=== PATIENT | female | born 1990 | race Caucasian/White ===

== ENCOUNTER 2016-10-14 17:59 | Emergency (ER) | payer OTHER ==
[2016-10-14 18:14] VITALS: BP 109/66
[2016-10-14 18:28] LABS: Hematocrit 40.2 % (37.0-47.0); Hemoglobin 13.7 gm/dL (12.5-16.0); Mean Cell Volume 89.1 fl (78-100); Mean Corpuscular Hemoglobin 30.4 pg (27-31); Mean Corpuscular Hgb Conc 34.1 g/dl (32-36); Mean Platelet Volume 9.7 fl (6.0-9.5); Neutrophil # 3.9 K/mm3 (1.3-6.0); Neutrophil % 51.4 % (42-75.0); Platelet Count 301 K/mm3 (150-450); Red Blood Count 4.51 M/mm3 (4.2-5.4); Red Cell Distribution Width 12.1 % (11.5-14.0); White Blood Count 7.6 K/mm3 (4.0-10.5)
[2016-10-14 18:38] LABS: Prothrombin Time (Patient) 10.2 Seconds (9.4-11.4)
[2016-10-14 18:44] LABS: ALT 19 U/L (19-67); AST 14 U/L (0-48); Alkaline Phosphatase * 49 U/L (50-170); Anion Gap 13.6 mmol/L (6.8-13.8); BUN/Creatinine Ratio 13.8 (9.0-21.6); Bilirubin, Total 0.6 mg/dL (0.0-1.1); Blood Urea Nitrogen 12 mg/dL (3-23); Ca. Corrected For Albumin 8.6 mg/dL (8.4-10.2); Calcium * 8.9 mg/dL (7.9-10.9); Carbon Dioxide 26.3 mmol/L (24-32.6); Chloride 106 mmol/L (97-106); Glucose * 107 mg/dL (70-110); Potassium 3.9 mmol/L (3.4-4.6); Sodium 142 mmol/L (132-142); Total Protein 7.6 gm/dL (6.2-8.2); Troponin I Less than 0.017 ng/ml (0.00-0.10)
[2016-10-14 18:54] LABS: INR 0.98 INR (0.90-1.10); Partial Thrombolplastin Time 24.9 Seconds (24-32)
--- OUTSIDE RECORDS SUMMARY | 2016-10-14 19:33 | XMS REPORT | Continuity of Care Document ---
:1990 Author Organization [facility] ([facility]) Address [address] [place] [address] Phone [phone] Care Team Providers Name Role Phone Unavailable Primary Care Provider Unavailable Source Comments This disclosure is being made pursuant to the Care Everywhere program, applicable federal and state laws, and may not contain all informaitonavailable regarding this patient.[facility] ([facility]) Active Allergies and Adverse Reactions Not on File Current Medications Not on file Active Problems Not on file Social History Tobacco Use Types Packs/Day Years Used Date Never Assessed Plan of Care Health Maintenance Due Date Last Done Comments Hepatitis B Vaccine (1 of 3 - Primary Series) 1988 Tdap Vaccine 1999 Cervical Cancer Screening 2006 Lipid Disorder Screening 2006 MMR Vaccine 2006 Td Vaccine 2006 Varicella Vaccine (1 of 2 - Adult - No Evidence of 2006 Immunity) Influenza Vaccine: Seasonal (#1) 03/26/2016 Results from Last 3 Months Not on file
--- OUTSIDE RECORDS SUMMARY | 2016-10-14 19:33 | XMS REPORT | Continuity of Care Document ---
:1990 Author Organization [facility] [place] [address] Care Team Providers Name Role Phone Unavailable Primary Care Provider Unavailable Source Comments This disclosure is being made pursuant to the Mithridion program and maynot contain all information available regarding this patient.[facility] Active Allergies and Adverse Reactions Not on File Current Medications Be aware that medications may not be up to date as of this document. Alwaysverify current medications with the patient. Not on file Active Problems Not on file Social History Tobacco Use Types Packs/Day Years Used Date Never Assessed Plan of Care Health Maintenance Due Date Last Done Comments Retired-Pertussis Vaccine Adult 2007 Retired-Tetanus Vaccine Adult 2007 Pap Smear 2009 Retired-INFLUENZA VACCINE 04/26/2015 Results from Last 3 Months Not on file
--- OUTSIDE RECORDS SUMMARY | 2016-10-14 19:34 | XMS REPORT | Summary of Care ---
:1990 Author Organization [facility] Address [address] [place] [address] Care Team Providers Name Role Phone Karen Ross Primary Care Physician Encounter Date(s): 01/20/16 - 01/20/16 [facility], [address] [place], [place] [address] Discharge Diagnosis: Obesity Discharge Disposition: 01 Discharged to Home or Self Care Attending Physician: ANITA Adan Referring Physician: ANITA Adan Vital Signs Most recent to oldest [Reference Range]: 1 Temperature Tympanic [36.6-38.1 DegC] 36.4 DegC *LOW* (01/20/16 8:44 AM) Temperature C to F 97.5 (01/20/16 8:44 AM) Peripheral Pulse Rate [60-100 bpm] 81 bpm (01/20/16 8:44 AM) SpO2 98 % (01/20/16 8:44 AM) Blood Pressure [90-130/60-90 mmHg] 102/64mmHg (01/20/16 8:44 AM) Mean Arterial Pressure, Cuff 77 mmHg (01/20/16 8:44 AM) Most recent to oldest [Reference Range]: 1 Height/Length Measured 157.48 cm (01/20/16 8:44 AM) Weight Dosing 90.30 kg1 (01/20/16 8:47 AM) Weight Measured 90.3 kg (01/20/16 8:44 AM) BSA Measured 1.91 m2 (01/20/16 8:44 AM) Body Mass Index Measured 36.41 kg/m2 (01/20/16 8:44 AM) 1Result Comment: This result was because the dosing weight was either not entered or it is>30 days old. This result is based off: Weight Measured January 20, 2016 08:44:00 CDT by Sadaf Castellanos CMA Problem List Condition Effective Dates Status Health Status Informant Miscarriage at 8 to 28 Active weeks(Confirmed) Sleep walking disorder(Confirmed) Active Allergies, Adverse Reactions, Alerts No Known Medication Allergies Medications clonazePAM 0.5 mg oral tablet 1 tab(s), Oral, HS, 0 Refill(s), Start Date: 07/16/14 8:08:00 [employer] Start Date: 07/16/14 Stop Date: 05/03/15 Status: DiscontinuedDepo-Provera mg, IM, qMonth, 0 Refill(s), Start Date: 06/21/14 14:32:00 CDT Start Date: 06/21/14 Stop Date: 05/03/15 Status: DiscontinuedDepo-Provera Contraceptive 150 mg/mL intramuscular suspension 1 mL, IM, q3mo, # 1 mL, 3 Refill(s), Start Date: 12/22/15 9:07:00 CDT Start Date: 12/22/15 Status: OrderedDepo-Provera Contraceptive 150 mg/mL intramuscular suspension 1 mL, IM, q3mo, # 1 mL, 3 Refill(s), Start Date: 09/05/15 9:29:00 [employer], [facility] [place] [place] Start Date: 09/05/15 Stop Date: 11/24/15 Status: DiscontinuedIron-150 tab(s), Oral, Daily, 0 Refill(s), Start Date: 11/24/15 11:21:00 CDT Start Date: 11/24/15 Status: OrderedMedrol Dosepak 4 mg oral tablet 1 packet(s), Oral, Per Package Label, as directed on package labeling, # 21 tab( s), 0 Refill(s), [facility] [place] [place] Special Instructions: as directed on package labeling Start Date: 02/25/14 Stop Date: 04/05/14 Status: Discontinuedmultivitamin 1 tab(s), Oral, Daily, 0 Refill(s), Start Date: 06/21/14 14:32:00 CDT Start Date: 06/21/14 Stop Date: 11/24/15 Status: Discontinuedphentermine 37.5 mg oral capsule 1 cap(s), Oral, Daily, # 30 cap(s), 0 Refill(s), Start Date: 08/16/14 8:59:47 [employer], [facility] [place] [place] Start Date: 08/16/14 Stop Date: 09/13/14 Status: Discontinuedphentermine 37.5 mg oral capsule 1 cap(s), Oral, Daily, # 30 cap(s), 0 Refill(s), Start Date: 07/16/14 8:15:36 [employer] Start Date: 07/16/14 Stop Date: 08/16/14 Status: Discontinuedphentermine 37.5 mg oral capsule 1 cap(s), Oral, Daily, # 30 cap(s), 0 Refill(s), Start Date: 06/21/14 14:49:00 CDT Start Date: 06/21/14 Stop Date: 07/16/14 Status: Completedphentermine 37.5 mg oral capsule 1 cap(s), Oral, Daily, # 30 cap(s), 0 Refill(s), Start Date: 11/08/14 9:10:00 CDT, Pharmacy: [place], [place] Start Date: 11/08/14 Stop Date: 05/03/15 Status: Discontinuedphentermine 37.5 mg oral tablet 1 tab(s), Oral, Daily, # 30 tab(s), 0 Refill(s), Start Date: 12/22/15 9:04:00 CDT Start Date: 12/22/15 Stop Date: 01/20/16 Status: Completedphentermine 37.5 mg oral tablet 1 tab(s), Oral, Daily, # 30 tab(s), 0 Refill(s), Start Date: 01/20/16 8:51:14 CDT Start Date: 01/20/16 Status: Orderedphentermine 37.5 mg oral tablet 1 tab(s), Oral, Daily, # 30 tab(s), 0 Refill(s), Start Date: 05/31/15 8:29:23 CDT Start Date: 05/31/15 Stop Date: 09/05/15 Status: Discontinuedphentermine 37.5 mg oral tablet 1 tab(s), Oral, Daily, # 30 tab(s), 0 Refill(s), Start Date: 05/03/15 9:36:00 CDT Start Date: 05/03/15 Stop Date: 05/31/15 Status: CompletedPreNata oral tablet, chewable tab(s), Chewed, Daily, 0 Refill(s), Start Date: 11/24/15 11:21:00 CDT Start Date: 11/24/15 Status: Ordered Results No data available for this section Immunizations No data available for this section Procedures Procedure Date Related Diagnosis Body Site Hernia repair 86 Miscarriage care Social History No data available for this section Assessment and Plan No data available for this section
== END 2016-10-14 19:26 | disposition left against medical advice (07) ==
LOC: ER 17:59
DX: Z53.21 Procedure and treatment not carried out due to patient leaving prior to being seen by health care provider (principal)